=== PATIENT | female | born 1975 | race Caucasian/White ===

== ENCOUNTER 2019-09-05 06:25 | Inpatient (IN) | payer OTHER ==
[2019-08-30 14:54] LABS: Absolute Lymphocytes (CBC) 1.1 K/uL (0.7-4.9); Basophils % 1.2 % (0-1.3); Lymphocytes % 23.3 % (15.3-44.8); MPV 8.7 fL (7.6-11.3); RBC Red Blood Cell Count 4.59 M/uL (3.86-4.86)
[2019-08-30 15:08] LABS: Urine Appearance CLEAR; Urine Bilirubin NEGATIVE (NEG); Urine Blood NEGATIVE (NEG); Urine Color YELLOW; Urine Glucose NEGATIVE (NEG); Urine Protein NEGATIVE (NEG); Urine Urobilinogen 0.2 mg/dL (0.2-1.0); Urine pH 6.5 (5.0-7.0)
[2019-08-30 15:09] LABS: Urine Microscopic Reflex NO UMIC
[2019-09-05] MEDS ORDERED: SCOPOLAMINE HYDROBROMIDE PATCH TD ONE (06:49)
[2019-09-05] MEDS ORDERED: Ringers Lactate 1,000 ML IV ONE ×4 (06:49→10:53)
[2019-09-05] MEDS ORDERED: CEFAZOLIN/SWI 2gm 2 GM/20 ML SYR ONE (06:50)
[2019-09-05] MEDS ORDERED: BUPIVACAINE 0.25% PF 30 ML VIAL ONE (07:07)
[2019-09-05] MEDS ORDERED: FENTANYL CITR 100 MCG/2 ML ONE ×2 (07:18→09:33)
[2019-09-05] MEDS ORDERED: propofoL 200 MG/20 ML VIAL IV ONE (07:18)
[2019-09-05] MEDS ORDERED: ROCURONIUM 50 MG/5 ML VIAL IV ONE (07:19)
[2019-09-05] MEDS ORDERED: MIDAZOLAM HCL 2 MG/2 ML INJ ONE ×2 (07:19→10:36)
[2019-09-05] MEDS ORDERED: LIDOCAINE 2% MPF 5 ML VIAL ONE (07:19)
[2019-09-05] MEDS ORDERED: dexAMETHasone 10 MG/ML VIAL ONE (08:25)
[2019-09-05] MEDS ORDERED: ONDANSETRON 4 MG/2 ML VIAL ONE (08:33)
[2019-09-05] MEDS ORDERED: NS 0.9% VIAL 20 ML ONE (09:49)
[2019-09-05] MEDS ORDERED: VECURONIUM 10 MG/VIAL IV ONE (10:30)
[2019-09-05] MEDS ORDERED: HYDROMORPHONE HCL 1 MG/ML INJ ONE (10:31)
[2019-09-05] MEDS ORDERED: CEFAZOLIN SODIUM 1 GM/VIAL ONE (11:09)
[2019-09-05] MEDS ORDERED: NS 0.9% VIAL 10 ML ONE (11:09)
[2019-09-05] MEDS ORDERED: GLYCOPYRROLATE 0.2 MG/ML SYR ONE (11:55)
[2019-09-05] MEDS ORDERED: NEOSTIGMINE 1 MG/ML -5 ML ONE (12:03)
[2019-09-05] MEDS ORDERED: KETOROLAC 30 MG/ML INJ ONE (12:03)
[2019-09-05] MEDS ORDERED: MORPHINE/NS PCA 50 MG/50 ML PCA.SYRING IV PRN (13:08)
[2019-09-05] MEDS ORDERED: PROMETHAZINE 25 MG TABLET PO PRN (13:09)
[2019-09-05] MEDS ORDERED: PROMETHAZINE INJ 25 MG/ML AMP IV PRN (13:10)
[2019-09-05] MEDS ORDERED: KETOROLAC 30 MG/ML INJ IV PRN (13:10)
[2019-09-05] MEDS ORDERED: HYDROCODONE/APAP 5/325 MG TAB PO PRN (13:11)
[2019-09-05] MEDS ORDERED: IBUPROFEN 600 MG TAB PO PRN (13:11)
[2019-09-05 13:12] VITALS: O2SAT 99
[2019-09-05] MEDS ORDERED: Ringers Lactate 1,000 ML IV SCH (14:00)
[2019-09-05 14:40] VITALS: BMI 23.8
[2019-09-06 06:13] LABS: Absolute Lymphocytes (CBC) 1.1 K/uL (0.7-4.9); Basophils % 0.6 % (0-1.3); Hematocrit 29.9 % (36.0-45.0); Lymphocytes % 17.9 % (15.3-44.8); MPV 8.6 fL (7.6-11.3); RBC Red Blood Cell Count 3.57 M/uL (3.86-4.86)
[2019-09-06 06:38] LABS: BUN Blood Urea Nitrogen 6 mg/dL (7-18); Bicarbonate 27 mmol/L (21-32); Glucose Level 89 mg/dL (74-106); Potassium 3.9 mmol/L (3.5-5.1); Sodium Level 139 mmol/L (136-145)
[2019-09-06] MEDS: HYDROCODONE/APAP 5/325 MG TAB PO PRN ×2 (14:00→21:55)
[2019-09-06] MEDS ORDERED: PROMETHAZINE INJ 25 MG/ML AMP IV PRN (15:36)
[2019-09-06] MEDS ORDERED: KETOROLAC 30 MG/ML INJ IV PRN (15:37)
[2019-09-07] MEDS: HYDROCODONE/APAP 5/325 MG TAB PO PRN (07:18)
--- NOTE | 2019-09-07 09:24 | OP ---
Date of Procedure: 09/05/2019 Surgeon: Maria L Alamo MD Algologist: 1. Bhakti Ramirez. 2. Philip Granger MD. Preoperative Diagnosis: Enlarged uterus with leiomyoma 13 cm in size. Postoperative Diagnosis: Enlarged uterus with leiomyoma 13 cm in size and scarring of the bladder. Procedures Performed: Diagnostic laparoscopy, total abdominal hysterectomy, bilateral salpingectomy, bilateral ovariopexy, and cystoscopy. Estimated Blood Loss: 300. Urine Output: 300. Complications: None. Drains: Moeller catheter. Anesthesia: General endotracheal. Findings: On diagnostic laparoscopy, it was found the uterus was significantly enlarged and there wa s no room for movement in the anteroposterior direction, and the fibroid in the lower portion of the anterolateral uterine wall to the left, the fundus is being pushed to the top of the entire fibroid u terus. The fibroid lying below the fundus. The sounding length of it is 18 cm. On examination here in the abdomen with laparoscope, there was notch between the posterior abdominal wall and the sacrum and between anterior abdominal wall filling the entire cavity completely with no mobility. Therefor e, plan was to perform a laparotomy and that was done. During the laparotomy, there were significant amount of bladder adhesions which had to be taken down multiple layers, all likely from her prior C- section. Once this was able to be done, the hysterectomy was completed. Then, bilateral ovaries wer e significantly stretched out on their pedicle leaving high risk for torsion. Therefore, they were t acked to the base of the round ligament on both sides with the help of 3-0 Monocryl stitch on each si de without leaving a room for hernia. The appendix appeared to be enlarged and nodular that she needs a referral to see Dr. Bradley's. Indications: The patient is a 44-year-old presented for growing size of uterus. They describes her periods were very heavy for a few days followed by superintendent plant flow. She was diagnosed with a fibroid ut erus and seemed that the size was increasing and her cramping as well. She had a transvaginal ultras ound, which showed a fibroid of 13.5 cm in the anterior left wall, most likely in a subserosal locati on. Her hemoglobin was still 12.8 g. In the past few months, the patient has complained that the si ze had increased and there was increasing discomfort with the size. So after discussing the results, sampling was performed, and there was no evidence of any cancer endometrial or leiomyosarcoma. Disc ussed about all the different options of management of this fibroid, especially given the increasing size, preferred to proceed with a hysterectomy, myomectomy as she was done with zaire da silva and she was consented for this. Risk of leiomyosarcoma was in the premenopausal patient is uncomm on, however, present. All this was discussed with the patient and consented for total laparoscopic h ysterectomy, bilateral salpingectomy. If the hysterectomy was performed morcellation in t he back; and if this was not possible, then an open laparotomy performed for removal of fibroid in a safe fashion. Description Of Procedure: After informed consent was verified, she was taken back to OR, placed in a supine fashion on the operating table, general anesthesia was given. Placed in dorsal lithotomy pos ition. Arms tucked by the side. Abdomen, vulva, vagina, and perineum were prepped and draped in a s terile fashion. Time-out done. Moeller was placed to drain the bladder. A large VCare was introduced into the uterus without any problems . This was concerning. 3 cm above the level of the umbilicus, a 1.5 cm incision was made in the midline with the scalpel aft er injecting local. Fascia was incised, tagged with 0 Vicryl sutures. Peritoneum entered sharply. Ian introduced. Site of entry checked and insufflated. Insufflation was performed and unremarkab le. as above, laparotomy was decided. The midline incision was made from the suprapubic area all the way to the infraumbilical and then around the umbilicus on the right side connected to t he incision. Fascial incision made in the similar fashion with the Bovie. The peritoneum entered sh arply with the help of the Bovie and the incision made all the way. After the entire incision was op ened up, the bowel was packed. The patient was placed in a slight Trendelenburg. Nafisa retractor was used. After exposing the uterus, it was completely immobile, it would not lift up out of the pel vis, notch between the sacral promontory and the pubic symphysis. There was also significant amount of scarring on the bladder, so started the hysterectomy by identifying the round ligament on the left side. Two Kellys placed. Bovie used to cut the round ligament. Stitches placed on each pedicle. The peritoneum opened up with the help of a tonsil clamp dissecting down towards the bladder, the bro ad ligament, and LigaSure used to take this down after the dissection was performed and this was sepa rated. The fibroid appeared to be pushing in the left lateral aspect. Once the peritoneum was opene d all the way to the suprapubic area here, there was significant amount of scarring, was difficult to tell how high the bladder was, but definitely attached to the anterior abdominal wall in the lower p art of the fibroid and the uterus. The dissection was performed close to the uterus medially, dissecting the broad ligament laterally. Another layer was taken down, here then went on to go across the opening up the peritoneum with the h elp of the tonsil clamp and cutting with the LigaSure, making sure that this was thin. This was open ed all the way to the right broad ligament. Then, the top of the bladder adhesions were well visuali zed. These were and taken down. The scar tissue was taken down with the help of the LigaS ure. After the dissection using the LigaSure during the entire procedure. After the bladder on the topmost part where it was taken down, then it had to be peeled down in layer s until I went into the vesicovaginal space. This dissection took at least 50% of the entire procedu re. Once the bladder was completely down, then on the right side as well, I had to take down the bro ad and round ligament and take down in a similar fashion the broad ligament anteriorly con nected. Anterior broad ligament had to be on the right lateral aspect as well in order for me to see the bladder properly on the side where it was pulled up. Then, the mesosalpinx, utero-ova jessica ligament, rest of the broad ligament going posteriorly, all taken down with the help of the Liga Sure, and the posterior peritoneum was dissected to the level of the uterus and to further down along the uterus as far as I could on this side sharply with scissors. Then, the bladder dissection was c ompleted on this side anteriorly. Once this was retracted, I could see the bladder, the plane in whi ch I had to take down the broad ligament on the left side. Then, utero-ovarian ligament, mesosalpinx tube were all taken down on the left side as well. The posterior broad ligament was dissected easil y to the uterosacral staying medially on the fibroid . Once this was detached here, then t he broad ligament was dissected further with LigaSure. Then, there was mobility to the uterus where it could be pulled out of the pelvis. Once this was done, it was easy to figure out where the vessel s were posteriorly, they were displaced posteriorly. The bladder was still at another lay er and this was dissected laterally, divided with the help of scissors after clamping and tying with a Shelby. Then, the vessels were well visualized on the left side as well first on the rig ht side with the help of curved Sreekanth and back bleeding stopper with a Brenda. placed as well. On the right side, there was bleeding from the back and so a few more stitches had to be appl ied to control. Distally along the uterus, the vessels had been cauterized with the LigaSure for sto pping the bleeding. Once this was done, then there was good hemostasis taken down. Then, went on to dissect the cardinal ligaments. Once these were taken down with the help of Brenda on sara th sides. Three sets of Brenda were used to the vaginal branch that was bleeding on the left side. This was clamped and cut with the help of Brenda and then stitch tied on the left side. This was don e almost on the top of vagina here closer to the cervix. Once this was peeled down, curved Catrina's w ere placed underneath the cervix. The bladder had to be dissected in the central plane further . Once this was done, the Catrina's were placed, they were cut, the specimen was cut with the hel p of the Jed scissors. The uterus was first and removed. Then, the cervix was remov ed dissecting, the uterus was removed after the vessels were taken down, and this was sepa rated at the level of the internal . A stitch was placed on each side of the cervix on the vagina underneath the Sreekanth clamp. On the right side, I was not satisfied with the stitch as this was literally close to the rectum that seemed much more pulled up. The stitch was removed. There wa s no and once the rectum was dissected inferiorly, then the angle of the vaginal cuff was picked up and a vhymhu-ie-mzjre suture was placed here, then 2 other jvtpttx-wc-vwaus were placed in the middle between the angle sutures. I had to do 2 more 3-0 Vicryl sutures for hemostasis at the an gle just inferior to the cuff, just away from the ureter good hemostasis. Pressure was pl aced and small amount of Surgicel was placed as well. There was excellent hemostasis . Th e distal part of the tube was taken down with the help of the LigaSure and then the ovaries were tack ed with 3-0 Vicryl [id number]-vm-zvwci sutures to the distal round ligament . Thorough irrigat ion and suction performed. Appendix inspected and appeared to be nodular as described above and she will be referred for this. No indication for an appendectomy at this time. After thorough irrigation and suction of the abdominal cavity, all the lap, sponge, towels were remov ed. Counts were correct and peritoneum closed with the help of continuous running Vicryl 3-0. Fasci a closed with the help of continuous running 0 PDS. Subcutaneous tissues irrigated and suctioned and hemostasis Bovie. The rectus muscle in the anterior part of the lower third was brought together with the help of interrupted chromic 3-0 to bring the subcutaneous tissues togeth er, and 4-0 Monocryl continuous bottom to finish the skin closure. The Moeller was removed. Cystoscopy was performed in strong jets of urine from both ureteric orifices. No evidence of any i njury to the bladder. Moeller was left in place. Vagina was cleaned up good closure of the vaginal cuff. Instrument, needle, and sponge counts were done and were correct at the end of the ca se. The patient tolerated the procedure well. She will follow up with me in 1 week. She will be in house for the recovery. The Moeller was removed after she is able to ambulate or possibly remove the Moeller in 3 days. TRICIA/AAKASH Voice ID: [id number] Report ID: [id number]
[2019-09-07 16:17] VITALS: BP 114/71; TEMP 97.4
== END 2019-09-07 18:00 | disposition home or self-care (01) | DRG 743 ==
LOC: OR 06:25 → 2ND-WC 12:26
PROVIDERS: ADMIT Obstetrics & Gynecology; ATTEND Obstetrics & Gynecology
PROC: 0UT70ZZ Resection of Bilateral Fallopian Tubes, Open Approach (ICD-10-PCS; 2019-09-05)
PROC: 0US20ZZ Reposition Bilateral Ovaries, Open Approach (ICD-10-PCS; 2019-09-05)
PROC: 0UJD4ZZ Inspection of Uterus and Cervix, Percutaneous Endoscopic Approach (ICD-10-PCS; 2019-09-05)
PROC: 0UT90ZZ Resection of Uterus, Open Approach (ICD-10-PCS; principal; 2019-09-05 07:30)
DX: D25.9 Leiomyoma of uterus, unspecified (principal); Z91.040 Latex allergy status
CPT/HCPCS: 36415; 80048; 81003; 81025; 85025; 86850; 86900; 86901; 88307; J0690; J1100; J1170; J2250; J2270; J2405; J2704; J2710; J3010; J7120

== ENCOUNTER 2021-07-04 07:32 | Day surgery (SDC) | payer OTHER ==
[2021-07-04] MEDS ORDERED: Ringers Lactate 1,000 ML IV ONE (07:41)
[2021-07-04] MEDS ORDERED: propofoL 200 MG/20 ML VIAL IV ONE (08:36)
[2021-07-04] MEDS ORDERED: LIDOCAINE 1% MPF 5 ML VIAL ONE (08:36)
--- NOTE | 2021-07-04 09:26 | ENDO RPT ---
[address], [address] COLONOSCOPY PROCEDURE REPORT EXAM DATE: 07/04/2021 PATIENT NAME: Mona Luke MR #: [id number] BIRTHDATE: 1975 ATTENDING: Shelton Allen DR STATUS: outpatient BODY WORK AUTO TRIMMER: Ngozi Rutherford RN and Bere Rod INDICATIONS: The patient is a 46 yr old Female here for a colonoscopy due to colon cancer screening PROCEDURE PERFORMED: Colonoscopy with biopsy and Colonoscopy with biopsy - cold polypectomy MEDICATIONS: Per Anesthesia. ESTIMATED BLOOD LOSS: None CONSENT: The patient understands the risks and benefits of the procedure and understands that these risks include, but are not limited to: sedation, allergic reaction, infection, perforation and/or bleeding. Alternative means of evaluation and treatment include, among others: physical exam, x-rays, and/or surgical intervention. The patient elects to proceed with this endoscopic procedure. DESCRIPTION OF PROCEDURE: During intra-op preparation period all mechanical medical equipment was checked for proper function. Hand hygiene and appropriate measures for infection prevention was taken. Procedure, possible complications, alternatives including, but not limited to possibility of bleeding, perforation, tear, infection, sepsis, need for surgery, need for blood transfusion, were explained to the patient. After the risks, benefits and alternatives of the procedure were thoroughly explained, Informed consent was verified, confirmed and timeout was successfully executed by the treatment team. The patient was placed in the left lateral position. A digital rectal exam was performed and revealed internal hemorrhoids. After appropriate level of anesthesia, the scope was passed. The EC-[id number] ([id number]) endoscope was introduced through the anus and advanced to the ileum. The quality of the prep was good. The instrument was then slowly withdrawn as the colon was fully examined. Scope withdrawal time was 12 minutes. COLON FINDINGS: A small patch of abnormal mucosa was found at the cecum. The mucosa was congested. A biopsy of the lesion was performed using cold forceps. A polypoid shaped pedunculated polyp ranging between 3-5mm in size was found in the anal canal. A polypectomy was performed using snare cautery. The resection was complete, the polyp tissue was completely retrieved and sent to histology. Small internal hemorrhoids were found. Retroflexed views revealed no abnormalities. The scope was then completely withdrawn from the patient and the procedure terminated. ADVERSE EVENTS: There were no complications. IMPRESSIONS: 1. Small abnormal mucosa was found at the cecum; The mucosa was congested; biopsy of the lesion was performed using cold forceps 2. Pedunculated polyp ranging between 3-5mm in size was found; polypectomy was performed using snare cautery 3. Small internal hemorrhoids RECOMMENDATIONS: 1. avoid NSAIDS for 2 weeks 2. fiber rich diet 3. follow-up: office 2 week(s) 4. Monitor for any evidence of rectal bleeding. 5. await biopsy results 6. hemorrhoidal hygiene RECALL: Shelton Allen DR eSigned: Shelton Allen DR 07/04/2021 9:25 AM cc: CPT CODES: ICD9 CODES: PATIENT NAME: Mona Luke MR#: [id number]
[2021-07-04 10:49] VITALS: BP 100/61; TEMP 97.8; O2SAT 100
== END 2021-07-04 09:57 | disposition home or self-care (01) ==
LOC: OR 07:32
PROVIDERS: ATTEND Surgery
PROC: 0DBH8ZX Excision of Cecum, Via Natural or Artificial Opening Endoscopic, Diagnostic (ICD-10-PCS; 2021-07-04)
PROC: 0DBP8ZX Excision of Rectum, Via Natural or Artificial Opening Endoscopic, Diagnostic (ICD-10-PCS; principal; 2021-07-04 08:45)
DX: Z12.11 Encounter for screening for malignant neoplasm of colon (principal); K62.0 Anal polyp; K64.8 Other hemorrhoids; K63.9 Disease of intestine, unspecified; Z91.048 Other nonmedicinal substance allergy status; Z20.822 Contact with and (suspected) exposure to COVID-19
CPT/HCPCS: 88305; 45385; 45380; U0002; J2704; J7120